=== PATIENT | male | born 1970 | race Caucasian/White ===

== ENCOUNTER 2016-08-25 17:52 | Inpatient (IN) | payer OTHER ==
[~2016-08-25] VITALS: Ht 172.7 cm; Wt 92.6 kg
[2016-08-25 17:54] VITALS: BP 165/97; PULSE 85; RESP 15; TEMP 97.8; O2SAT 98
--- NOTE | 2016-08-25 18:07 | PD ---
HPI Chief Complaint: Neuro Symptoms/ Deficits Time Seen by Provider: 18:07 Travel History International Travel<30 days: No Contact w/Intl Traveler<30days: No Traveled to known affect area: No History of Present Illness HPI 46-year-old male came to the emergency room with history of coronary syndrome that was diagnosed outpatient by the contact center team lead. Patient says that 3 weeks ago he started developing some left-sided headache. He went to the urgent care and was given antibiotic amoxicillin for 10 days for possible sinusitis. He took the medication and the symptoms persisted. Yesterday he noticed that his left eyelid was drooping and this morning he noticed that his pupils were irregular with the left one being smaller. He went to see his primary care who sent him to get a CAT scan of his head and to see an contact center team lead. The CAT scan of the head showed a possible pituitary tumor and the contact center team lead diagnosed him with one or syndrome and asked them to come to the emergency room as soon as possible. Patient does not have any vision changes. He continues to complain of soreness on the left side of his scalp. He seems to be anxious. He has history of colon cancer with colon resection 15 years ago. He is in full remission as far as he knows. Vital signs were stable. [facility] Past Medical History Narrative Medical List of his past medical, social and family history was reviewed from the nursing note. Social History Tobacco Use: No Allergies-Medications (Allergen,Severity, Reaction): Coded Allergies: No Known Allergies (Unverified , 08/25/16) Comments No known drug allergies. Reported Meds & Prescriptions Reported Meds & Active Scripts Active Reported Co Q-10 (Coenzyme Q10 (Ubidecarenone)) 200 Mg Cap 200 Mg PO DAILY Aspirin 81 Mg Tabdr 81 Mg PO DAILY Zorvolex (Diclofenac) 35 Mg Cap 75 Mg PO DAILY Fish Oil ([place]-3 Fatty Acids) 1,200 Mg Cap 1,200 Mg PO DAILY Lisinopril 10 Mg Tab 10 Mg PO DAILY Crestor (Rosuvastatin Calcium) 20 Mg Tab 20 Mg PO DAILY Narrative Medication List of his home medications reviewed from the nursing note. Review of Systems Except as stated in HPI: all other systems reviewed are Neg Physical Exam Narrative GENERAL: Awake, alert, anxious, no obvious distress SKIN: Warm and dry. HEAD: Atraumatic. Normocephalic. EYES: Right pupil is 5 mm round and reactive to light. Left pupil is 2 mm round and reactive to light. Left ptosis. Conjugate eye movement present. Peripheral vision intact in all 4 quadrants. ENT: No nasal bleeding or discharge. Mucous membranes pink and moist. NECK: Trachea midline. No JVD. CARDIOVASCULAR: Regular rate and rhythm. No murmur appreciated. RESPIRATORY: No accessory muscle use. Clear to auscultation. Breath sounds equal bilaterally. GASTROINTESTINAL: Abdomen soft, non-tender, nondistended. Hepatic and splenic margins not palpable. MUSCULOSKELETAL: No obvious deformities. No clubbing. No cyanosis. No edema. NEUROLOGICAL: Awake and alert. No obvious cranial nerve deficits. Motor grossly within normal limits. Normal speech. PSYCHIATRIC: Appropriate mood and affect; insight and judgment normal. Data Data Last Documented VS Orders Mri Brain W&W/O Contrast (08/25/16 ) Complete Blood Count With Diff (08/25/16 18:13) Basic Metabolic Panel (Bmp) (08/25/16 18:13) Prothrombin Time / Inr (Pt) (08/25/16 18:13) Roof Designer / Telemetry ROBERT.Q8H (08/25/16 18:13) Mri Soft Tissue Neck W&W/O Con (08/25/16 ) Alprazolam (Xanax) (08/25/16 19:00) Chest, Pa & Lat (08/25/16 ) Cta Neck W Iv Contrast W 3d (08/25/16 ) Cta Brain W Iv Contrast W 3d (08/25/16 ) Gadodiamide Pf Inj (Omniscan Pf Inj) (08/25/16 20:10) Iohexol 350 Inj (Omnipaque 350 Inj) (08/25/16 20:57) Admit Order (Ed Use Only) (08/25/16 21:22) Follicle Stimulating Hormone (08/25/16 18:30) Free Thyroxine (T4) (08/25/16 18:30) Luteinizing Hormone (Lh) (08/25/16 18:30) Thyroid Stimulating Hormone (08/25/16 18:30) Labs Laboratory Tests Test 08/25/16 18:30 Anion Gap 9 MEQ/L Estimat Glomerular Filtration 69 ML/MIN Rate Free Thyroxine 0.73 NG/DL Thyroid Stimulating Hormone 2.010 uIU/ML 3rd Gen Follicle Stimulating Hormone 10.0 mIU/mL Luteinizing Hormone 1.8 mIU/mL MDM Medical Decision Making Medical Screen Exam Complete: Yes Emergency Medical Condition: Yes Medical Record Reviewed: Yes Differential Diagnosis Pituitary mass, Smiley's syndrome Narrative Course 7:01 PM I have ordered an MRI of his brain with and without contrast and MRI of the soft tissue of the neck. There is an x-ray of the chest been ordered as well. Awaiting for the imaging studies to be done and resulted. For the blood test result. Patient was given Xanax for his anxiety. Case has been signed over to the oncoming ER physician. Procedures EKG Prior to Arrival: No Scripts Lorazepam (Ativan)0.5 Mg Tab0.5 Mg PO Q6H PRN (ANXIETY AND/OR AGITATION) #20 TAB Ref 0 Prov:Giovanni Laboy MD R1 08/28/16 Prednisone 10 Mg Tab10 Mg PO DAILY #26 TAB Ref 0 Take 60mg for the first two days (6 tablets per day), Take 40mg for the next two days (4 tablets per day), Take 20mg for the next two days (2 tablets per day), Take 10mg for the last two days (1 taletper day) Total of 8 days of Prednisone taper Prov:Giovanni Laboy MD R1 08/28/16 Antonio Carranza MD Aug 25, 2016 18:07
[2016-08-25] MEDS ORDERED: ROSU20 PO (18:22)
[2016-08-25] MEDS ORDERED: DICL1CAP4 PO (18:22)
[2016-08-25] MEDS ORDERED: FISH120014 PO (18:22)
[2016-08-25] MEDS ORDERED: LISI10TA3 PO (18:22)
[2016-08-25] MEDS ORDERED: CO Q200C PO (18:22)
[2016-08-25] MEDS ORDERED: ASPI1TAB69 PO (18:22)
[2016-08-25 18:35] VITALS: BP 145/82; PULSE 77; RESP 17; O2SAT 98
[2016-08-25] MEDS ORDERED: ALPRAZolam 0.5 MG TAB PO ONE (19:00)
[2016-08-25 19:11] LABS: AUTOMATED NEUTROPHIL # 6.6 TH/MM3 (1.8-7.7); BASOPHIL % 0.4 % (0.0-2.0); EOSINOPHIL % 0.2 % (0.0-4.0); HEMATOCRIT 43.7 % (39.0-51.0); HEMO FLAGS DIFF FINAL; LYMPH % 19.5 % (9.0-44.0); LYMPHOCYTE # 1.8 TH/MM3 (1.0-4.8); MEAN CELL VOLUME 80.6 FL (80.0-100.0); MEAN CORPUSCULAR HEMOGLOBIN 27.9 PG (27.0-34.0); MEAN CORPUSCULAR HGB CONC 34.7 % (32.0-36.0); MONO % 6.2 % (0.0-8.0); NEUT % 73.7 % (16.0-70.0); PLATELET COUNT 231 TH/MM3 (150-450); RED BLOOD COUNT 5.42 MIL/MM3 (4.50-5.90); RED CELL DISTRIBUTION WIDTH 13.6 % (11.6-17.2)
[2016-08-25 19:16] LABS: PROTHROMBIN TIME - PATIENT 11.5 SEC (9.8-11.6)
[2016-08-25 19:23] LABS: BICARBONATE 28.3 MEQ/L (21.0-32.0); POTASSIUM 3.8 MEQ/L (3.5-5.1)
--- NOTE | 2016-08-25 19:26 | RADRPT ---
EXAM DATE/TIME: 08/25/2016 19:18 [facility] COMPARISON: No previous studies available for comparison. INDICATIONS : Cough. MEDICAL HISTORY : horners syndrome. SURGICAL HISTORY : None. ENCOUNTER: Initial ACUITY: 1 day PAIN SCORE: 0/10 LOCATION: Bilateral chest FINDINGS: PA and lateral views of the chest demonstrate the lungs to be symmetrically aerated without evidence of mass, infiltrate or effusion. The cardiomediastinal contours are unremarkable. Osseous structure s are intact. CONCLUSION: Normal examination. Jaron No MD on August 25, 2016 at 19:24 Board Certified Radiologist. This report was verified electronically.
[2016-08-25] MEDS ORDERED: GADODIAMIDE PF 287 MG/ML 20 ML VIAL (for RAD MRI) IV ONE (20:10)
[2016-08-25] MEDS ORDERED: IOHEXOL 350 MG/ML 10 ML VIAL (for RAD DIAG) IV ONE (20:57)
--- NOTE | 2016-08-25 21:02 | RADRPT ---
EXAM DATE/TIME: 08/25/2016 20:29 [facility] COMPARISON: No previous studies available for comparison. INDICATIONS : Possible carotid dissection. Unequal pupils and neck mass. IV CONTRAST: 75 cc Omnipaque 350 (iohexol) IV ; Cumulative dose for multiple exams. RADIATION DOSE: 14.62 CTDIvol (mGy) ; Combined studies MEDICAL HISTORY : Carcinoma, colon. Hypertension. SURGICAL HISTORY : None. ENCOUNTER: Subsequent ACUITY: 1 day PAIN SCALE: 5/10 LOCATION: Bilateral neck TECHNIQUE: Volumetric scanning was performed using a multirow detector CT scanner. The data was post processed with a variety of visualization algorithms including full-volume maximum intensity projection, multip lanar sliding thin-slab reformation, curved-planar reformation, and surface-rendering techniques. Us ing automated exposure control and adjustment of the mA and/or kV according to patient size, radiatio n dose was kept as low as reasonably achievable to obtain optimal diagnostic quality images. FINDINGS: AORTIC ARCH: There is a three-vessel origin of the great vessels from the aorta. No evidence of ostial narrowing. RIGHT CAROTID: The common carotid artery is intact. The carotid bulb has a normal configuration without ulceration o r narrowing. The internal carotid artery lumen is smooth without stenosis. The external carotid jony ry is intact. LEFT CAROTID: The common carotid artery is intact. The carotid bulb has a normal configuration without ulceration or narrowing. The internal carotid artery lumen is smooth without stenosis. The external carotid ar sylvia is intact. VERTEBRALS: The vertebral arteries have a symmetric diameter. No stenotic lesions are seen. CONCLUSION: Normal examination. Jaron No MD on August 25, 2016 at 20:57 Board Certified Radiologist. This report was verified electronically.
--- NOTE | 2016-08-25 21:07 | RADRPT ---
EXAM DATE/TIME: 08/25/2016 19:28 This report includes an Addendum and supersedes previous reports for this exam. [facility] COMPARISON: No previous studies available for comparison. INDICATIONS : Pituitary adenoma. CONTRAST: 18 cc Omniscan (gadodiamide) IV MEDICAL HISTORY : Carcinoma, colon. Hypertension. Hypercholesterolemia. SURGICAL HISTORY : Colon resection. Cholecystectomy. Left knee. ENCOUNTER: Initial ACUITY: 1 day PAIN SCORE: 0/10 LOCATION: Head. TECHNIQUE: Multiplanar, multisequence MRI of the brain was performed both prior to and following the administration of paramagnetic contrast. FINDINGS: CEREBRUM: The ventricles are normal for age. No evidence of midline shift, mass lesion, hemorrha ge or acute infarction. No extraaxial fluid collections are seen. The pituitary gland reveals a homo geneous minimally peripheral enhancing cyst extending into the inferior suprasellar cistern. This ciara sures up to 1.6 cm in size. There is no obstructive hydrocephalus WHITE MATTER: No significant signal abnormalities are seen in the white matter. POSTERIOR FOSSA: The cerebellum and brainstem are intact. The 4th ventricle is midline. The cere bellopontine angle is unremarkable. The cerebellar tonsils are normal in position. DIFFUSION IMAGING: No focal areas of restricted diffusion are seen. No evidence of acute infarct ion. EXTRACRANIAL: The visualized portions of the orbits and paranasal sinuses are unremarkable. POST-CONTRAST: No abnormal areas of parenchymal or dural enhancement. No evidence of blood-brain barrier breakdown. CONCLUSION: 1.6 cm cyst, cystic structure in the sella turcica extending into the inferior supras ellar cistern. Cystic malignancy such as cystic craniopharyngioma cannot be excluded. Jaron No MD on August 25, 2016 at 21:02 Board Certified Radiologist. This report was verified electronically. ADDENDUM: Differential of this pituitary lesion would also include Rathke's cleft cyst, cystic c hromophobe adenoma, or arachnoid cyst. Jaron No MD on August 25, 2016 at 21:35 Board Certified Radiologist. This report was verified electronically.
--- NOTE | 2016-08-25 21:09 | RADRPT ---
EXAM DATE/TIME: 08/25/2016 20:29 [facility] COMPARISON: No previous studies available for comparison. EXTERNAL COMPARISON : [facility], CT BRAIN August 25, 2016 INDICATIONS : Unequal pupils, headache and blurred vision. IV CONTRAST: 75 cc Omnipaque 350 (iohexol) IV ; Cumulative dose for multiple exams. RADIATION DOSE: 14.62 CTDIvol (mGy) MEDICAL HISTORY : Carcinoma, colon. Hypertension. SURGICAL HISTORY : None. ENCOUNTER: Initial ACUITY: 1 day PAIN SCALE: 6/10 LOCATION: cranial Complete Appropriate Items [id number]: ID X 2: Complete NameDate of BirthPatient Name Band Estimated radiation dose: Verified protocol and related expected exam dose. Education: Nurse/Technologist explained procedure to patient/family. Patient/family demonstrates understanding of procedure. Comments: Images Restored: None for Restore Technologist(s) : Seth Joyce RT(R)(CT) James Zambrano (Greg) RT(R)(CT) ZOEY TAMARA M. MR#[id number] :74 Exam da te/desc:August 25, 2016CT[facility] BRAIN W 3D RECON TECHNIQUE: Volumetric scanning was performed using a multi-row detector CT scanner. The data was post processed with a variety of visualization algorithms including full volume maximum intensity projection, multi -planar sliding thin slab reformation, curved planar reformation, and surface rendering techniques. Using automated exposure control and adjustment of the mA and/or kV according to patient size, radiat ion dose was kept as low as reasonably achievable to obtain optimal diagnostic quality images. FINDINGS: There is excellent visualization of the major intracranial arteries out to the second-order branch ve ssels. There is no evidence for aneurysm, vessel truncation or stenosis, and no evidence for vascula r malformation. Suggestion of minimal expansion of the sella CONCLUSION: Normal examination. No evidence of aneurysm Jaron No MD on August 25, 2016 at 21:05 Board Certified Radiologist. This report was verified electronically.
--- NOTE | 2016-08-25 21:18 | RADRPT ---
EXAM DATE/TIME: 08/25/2016 19:28 [facility] COMPARISON: CTA CAROTID ARTERIES W 3D RECON, August 25, 2016, 20:29. INDICATIONS : Neoplasm. Smiley's syndrome. CONTRAST: 18 cc Omniscan (gadodiamide) IV MEDICAL HISTORY : Carcinoma, colon. Hypertension. Hypercholesterolemia. SURGICAL HISTORY : Colon resection. Cholecystectomy. Left knee. ENCOUNTER: Initial ACUITY: 1 day PAIN SCORE: 0/10 LOCATION: Head. TECHNIQUE: Multisequence, multiplanar MRI examination was performed. FINDINGS: NASOPHARYNX: The nasopharyngeal airway has a normal configuration. No mucosal thickening or mass is seen. OROPHARYX: The intrinsic muscles of the tongue are symmetric. The tonsillar pillars are intact. The prevertebr al soft tissues are not thickened. LARYNX: The supraglottic, glottic, and infraglottic structures are intact. PARAPHARYNGEAL: The parapharyngeal space is intact. SALIVARY GLANDS: The parotid and submandibular glands are intact. LYMPH NODES: No enlarged or necrotic appearing nodes. THYROID: Homogeneous enhancement without evidence of nodule. BONES: Homogeneous signal in the marrow of the visualized osseous structures. POST CONTRAST: No abnormal areas of enhancement seen. CONCLUSION: Normal examination. Jaron No MD on August 25, 2016 at 21:14 Board Certified Radiologist. This report was verified electronically.
--- NOTE | 2016-08-25 21:23 | HHI.HP ---
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 Symptoms began three weeks ago (Aug 06) as a "nerve attack" around L eye. Attack lasted ~90 sec, radiated to L- scalp, and was accompanied by L eye twitching, pressure around eye, and tenderness to L scalp and base of skull. Went to urgent care, diagnosed with sinus infection, and treated with Amoxicillin x5 days with no improvement. Facial neuropathy and scalp tenderness have continued, along with intermittent L -sided headaches. 1 week ago, noticed his L eye drooping with constricted L pupil and dilated R pupil. Denies anhydrosis. Experiencing blurry vision in RIGHT eye. Went to PCP today who had stat referral to ophthalmology and ordered outpatient CT scan. Credit Historian diagnosed Smiley's syndrome and referred him to ED for further workup. CT scan was suggestive of pituitary mass. Pt denies loss of visual osborn, double vision, acute impotence, or weight loss/ weight gain. Denies fevers, confusion, night sweats, or change in appetite. ( Khushbu Dubon MD R1) Review of Systems Constitutional: COMPLAINS OF: Fatigue (mildly increased, going to bed earlier) , DENIES: Fever, Weight gain, Weight loss, Chills, Change in appetite Eyes: COMPLAINS OF: Blurred vision (RIGHT eye), DENIES: Eye pain, Photosensitivity, Double Vision Ears, nose, mouth, throat: DENIES: Vertigo, Throat pain, Odynophagia Respiratory: DENIES: Wheezing, Shortness of breath Cardiovascular: DENIES: Chest pain, Palpitations, Syncope Gastrointestinal: DENIES: Abdominal pain, Diarrhea, Nausea Genitourinary: DENIES: Sexual dysfunction, Hematuria Musculoskeletal: COMPLAINS OF: Back pain (lumbar, chronic), DENIES: Joint pain , Neck pain Integumentary: DENIES: Rash Hematologic/lymphatic: DENIES: Bruising Neurologic: COMPLAINS OF: Headache (mild, intermittent, L sided), DENIES: Abnormal gait, Poor Balance Psychiatric: COMPLAINS OF: Anxiety (chronic), DENIES: Depression, Hallucinations (Khushbu Dubon MD R1) Past Family Social History Past Medical History HTN HLD Hx Stage 4 Colon Cancer (07/2011) s/p colon resection and liver resection. Chemo only, not radiation Bowel obstruction (07/2016), treated with medications, no sx, colonoscopy 2015, wnl Chronic sinus congestion Chronic lumbar back pain Anxiety Past Surgical History L knee sx (2011) Colectomy (2011) with removal of GB and part of liver (08/2011) Reported Medications Co Q-10 (Coenzyme Q10 (Ubidecarenone)) 200 Mg Cap 200 Mg PO DAILY Aspirin 81 Mg Tabdr 81 Mg PO DAILY Zorvolex (Diclofenac) 35 Mg Cap 75 Mg PO DAILY Fish Oil ([place]-3 Fatty Acids) 1,200 Mg Cap 1,200 Mg PO DAILY Lisinopril 10 Mg Tab 10 Mg PO DAILY Crestor (Rosuvastatin Calcium) 20 Mg Tab 20 Mg PO DAILY (Khushbu Dubon MD R1) Allergies: Coded Allergies: No Known Allergies (Unverified , 08/25/16) Family History Mother: HLD, HTN Father: HLD, HTN, Colon Cancer s/p resection Social History Tobacco: 12-1 PPD * 10 years (quit 2001) Alcohol: 3 beers/night Recreational drugs: denies (Khushbu Dubon MD R1) Physical Exam Vital Signs Vital Signs Date Time Temp Pulse Resp B/P Pulse Ox O2 Delivery O2 Flow Rate FiO2 08/25/16 18:35 77 17 145/82 98 Room Air 08/25/16 18:12 81 16 100 Room Air 08/25/16 17:54 97.8 85 15 165/97 98 Physical Exam GEN: Adult male in mild distress secondary to anxiety. DERM: No rashes. Skin warm and dry. HEENT: Pupillary light reflex intact bilaterally. Anisorca with R pupil dilated to ~4-5mm, L pupil constricted to 2mm. Faint diffuse injection of L conjunctiva. Visual osborn full and intact. EOMI. L-scalp tenderness. NECK: Full ROM. No LAD. CV: RRR. No murmurs or gallops. RESP: Lungs CTAB. No wheezing or rales. Breath sounds equal b/l. GI: Abd soft, non-tender, non-distended. MSK: Muscle tone symmetrical, wnl. Moves all four limbs against gravity. No calf tenderness NEURO: AAO x3. No facial droop. Motor and sensory grossly within normal limits.Normal speech. PSYCH: Anxious affect. Asks many questions. Insight good. Laboratory Laboratory Tests Test 08/25/16 18:30 White Blood Count 9.0 Red Blood Count 5.42 Hemoglobin 15.1 Hematocrit 43.7 Mean Corpuscular Volume 80.6 Mean Corpuscular Hemoglobin 27.9 Mean Corpuscular Hemoglobin 34.7 Concent Red Cell Distribution Width 13.6 Platelet Count 231 Mean Platelet Volume 8.5 Neutrophils (%) (Auto) 73.7 Lymphocytes (%) (Auto) 19.5 Monocytes (%) (Auto) 6.2 Eosinophils (%) (Auto) 0.2 Basophils (%) (Auto) 0.4 Neutrophils # (Auto) 6.6 Lymphocytes # (Auto) 1.8 Monocytes # (Auto) 0.6 Eosinophils # (Auto) 0.0 Basophils # (Auto) 0.0 CBC Comment DIFF FINAL Differential Comment Prothrombin Time 11.5 Prothromb Time International 1.0 Ratio Sodium Level 138 Potassium Level 3.8 Chloride Level 101 Carbon Dioxide Level 28.3 Anion Gap 9 Blood Urea Nitrogen 9 Creatinine 1.15 Estimat Glomerular Filtration 69 Rate Random Glucose 116 Calcium Level 9.5 (Khushbu Dubon MD R1) Result Diagram: 08/25/16 1830 08/25/160 Imaging Soft Tissue MRI 08/25/16 0000 Signed Impressions: Service Date/Time: August 19:28 - CONCLUSION: Normal examination. Jaron No MD Neck CTA 08/25/16 0000 Signed Impressions: Service Date/Time: August 20:29 - CONCLUSION: Normal examination. Jaron No MD Head CTA 08/25/16 0000 Signed Impressions: Service Date/Time: August 20:29 - CONCLUSION: Normal examination. No evidence of aneurysm Jaron No MD Chest X-Ray 08/25/16 0000 Signed Impressions: Service Date/Time: August 19:18 - CONCLUSION: Normal examination. Jaron No MD Brain MRI 08/25/16 0000 Signed Impressions: Service Date/Time: August 19:28 - CONCLUSION: 1.6 cm cyst , cystic structure in the sella turcica extending into the inferior suprasellar cistern. Cystic malignancy such as cystic craniopharyngioma cannot be excluded. Jaron No MD ADDENDUM: Differential of this pituitary lesion would also include Rathke's cleft cyst, cystic chromophobe adenoma, or arachnoid cyst. Jaron No MD (Khushbu Dubon MD R1) Assessment and Plan Assessment and Plan 46 year-old male with chronic sinus congestion, presenting with ptosis, myiosis , and cranial neuropathy admitted 08/25/16 for workup of pituitary cyst and rule- out Smiley's syndrome. Code Status Full Discussed Condition With SDW: Dr. Daniel (Khushbu Dubon MD R1) Attending Attestation Patient seen and examined. Case reviewed and discussed with the resident team. Agree with plan of care as discussed with me and documented in the resident note. (Yvette Whitehead MD) Problem List: (1) Pituitary cyst Status: Chronic Plan: -MRI brain demonstrated 1.6cm cyst of sella turcica. Increased fatigue, denies impotence, weight gain. -Differential includes cysts (Rathke's cleft cyst vs other) vs pituitary adenoma vs other benign tumor (craniopharyngioma, meningioma, pituicytoma) vs malignant tumor. -If adenoma, prevalence lactotroph > nonfunctioning > somatotroph > corticotroph. 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 Pt denies anhydrosis. Ruled out cervical artery dissection or cavernous sinus lesions with imaging as below. -CXR: no acute process. -Head CTA: normal examination, no aneurysm -Neck CTA: wnl -Soft tissue MRI: wnl -CT chest w/ and w/o contrast pending (3) Facial neuropathy Status: Acute Plan: Facial neuropathy x3 weeks, centered around L eye, radiating to L scalp with intermittent "attacks" and chronic tenderness of scalp/base of skull. Differential: side effect space-occupying pituitary cyst vs sinus headache vs neuropathy cervical neuropathy vs trigeminal neuralgia -Continue to monitor for improvement with work up of pituitary mass -Pain control as above (4) HTN (hypertension) Status: Chronic Plan: -Continue lisinopril 10mg daily -Continue baby aspirin daily (5) HLD (hyperlipidemia) Status: Chronic Plan: -Continue Crestor 20mg daily -Hold CoQ10 -Hold [place] 3 fatty acids (6) Fluids, Electrolytes, Nutrition, Prophylaxis Status: Acute Plan: Fluids: Per PO Electrolytes: monitor and replete, as necessary Nutrition: regular diet DVT prophylaxis: SCDs GI prophylaxis: not indicated Pain management: Ibuprofen 600mg PRN pain 5-10 (Khushbu Dubon MD R1) 2 Midnight Certification Type: Admission for Inpatient Services Order for Inpatient Services The services are ordered in accordance with Medicare regulations or non- Medicare payer requirements, as applicable. In the case of services not specified as inpatient-only, they are appropriately provided as inpatient services in accordance with the 2-midnight benchmark. Estimated LOS (days): 2 days is the estimated time the patient will need to remain in the hospital, assuming treatment plan goals are met and no additional complications. Post-Hospital Plan: Home (Khusbhu Dubon MD R1) Khushbu Dubon MD R1 Aug 25, 2016 21:23 Yvette Whitehead MD Aug 26, 2016 13:19
[2016-08-25] MEDS ORDERED: SODIUM CHLORIDE 0.9% FLUSH 5 ML FLUSH FLUSH PRN (22:15)
[2016-08-25] MEDS ORDERED: ACETAMINOPHEN 325 MG TAB PO PRN (22:15)
[2016-08-25] MEDS ORDERED: ZOLPIDEM TARTRATE 5 MG TAB PO PRN (22:15)
[2016-08-25] MEDS ORDERED: NALOXONE HCL 0.4 MG/ML AMP IV PRN (22:15)
[2016-08-25 22:39] VITALS: BP 142/87
[2016-08-25 23:00] VITALS: BP 153/63; PULSE 71; RESP 18; TEMP 97.2; O2SAT 97
[2016-08-26] VITALS (8 sets, daily range): BP systolic 118–153; BP diastolic 63–92; PULSE 67–85; RESP 16–20; TEMP 97.2–97.8; O2SAT 95–98
[2016-08-26 00:09] LABS: FREE T4 0.73 NG/DL (0.76-1.46); LUTEINIZING HORMONE 1.8 mIU/mL (1.2-10.6)
[2016-08-26] MEDS: LORazepam 2 MG/ML VIAL IV PUSH PRN ×3 (00:14→21:38)
[2016-08-26 08:35] LABS: AUTOMATED NEUTROPHIL # 4.6 TH/MM3 (1.8-7.7); BASOPHIL % 0.6 % (0.0-2.0); EOSINOPHIL # 0.1 TH/MM3 (0-0.4); HEMATOCRIT 40.7 % (39.0-51.0); HEMO FLAGS DIFF FINAL; LYMPH % 23.8 % (9.0-44.0); LYMPHOCYTE # 1.6 TH/MM3 (1.0-4.8); MEAN CELL VOLUME 80.8 FL (80.0-100.0); MEAN CORPUSCULAR HEMOGLOBIN 27.9 PG (27.0-34.0); MEAN CORPUSCULAR HGB CONC 34.6 % (32.0-36.0); MONO % 7.5 % (0.0-8.0); NEUT % 67.1 % (16.0-70.0); PLATELET COUNT 213 TH/MM3 (150-450); RED BLOOD COUNT 5.03 MIL/MM3 (4.50-5.90); RED CELL DISTRIBUTION WIDTH 13.8 % (11.6-17.2); WHITE BLOOD COUNT 6.9 TH/MM3 (4.0-11.0)
[2016-08-26] MEDS ORDERED: ATORVASTATIN 40 MG TAB PO SCH (09:00)
[2016-08-26] MEDS ORDERED: ASPIRIN EC 81 MG TABEC PO SCH (09:00)
[2016-08-26 09:01] LABS: ALKALINE PHOSPHATASE 68 U/L (45-117); ALT (GPT) 34 U/L (12-78); ANION GAP 10 MEQ/L (5-15); AST (GOT) 16 U/L (15-37); BICARBONATE 26.5 MEQ/L (21.0-32.0); BLOOD UREA NITROGEN 11 MG/DL (7-18); CHLORIDE 103 MEQ/L (98-107); GLOMERULAR FILTRATION RATE 80 ML/MIN (>89); POTASSIUM 4.1 MEQ/L (3.5-5.1); SODIUM (NA) 139 MEQ/L (136-145); TOTAL BILIRUBIN ADULT 2.1 MG/DL (0.2-1.0)
[2016-08-26] MEDS ORDERED: ACETAMINOPHEN/HYDROcodone 325 MG/5 MG TAB PO PRN ×2 (09:15→10:00)
[2016-08-26] MEDS ORDERED: NALOXONE HCL 0.4 MG/ML AMP IV PRN (09:30)
[2016-08-26] MEDS: LISINOPRIL 10 MG TAB PO SCH (09:31)
[2016-08-26] MEDS: SODIUM CHLORIDE 0.9% FLUSH 5 ML FLUSH FLUSH SCH ×2 (09:32→21:00)
[2016-08-26] MEDS: ACETAMINOPHEN 325 MG TAB PO PRN (09:40)
[2016-08-26] MEDS ORDERED: ACETAMINOPHEN/HYDROcodone 325 MG/10 MG TAB PO PRN (10:00)
[2016-08-26 12:26] LABS: HEMATOCRIT 42.7 % (39.0-51.0); MEAN CELL VOLUME 80.5 FL (80.0-100.0); MEAN CORPUSCULAR HGB CONC 34.8 % (32.0-36.0); PLATELET COUNT 237 TH/MM3 (150-450); RED CELL DISTRIBUTION WIDTH 13.7 % (11.6-17.2); REVIEW FLAG FINAL; WHITE BLOOD COUNT 7.7 TH/MM3 (4.0-11.0)
[2016-08-26 12:35] LABS: INTERNATIONAL NORMALIZED RATIO 1.1 RATIO; PROTHROMBIN TIME - PATIENT 11.9 SEC (9.8-11.6)
[2016-08-26] MEDS: DEXAMETHASONE 4 MG TAB PO SCH ×3 (12:40→22:54)
--- NOTE | 2016-08-26 13:06 | MB ---
cc: BREEZY SMITH M.D. DATE OF CONSULTATION: 08/26/2016 DATE OF : 1970 REASON FOR CONSULTATION 1. Ptosis, left eye. 2. Headache. 3. Abnormal MRI. 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 He stated that there was nothing wrong with his eye. Sometime in the beginning of the month he started having some nerve pain around his left side lasting for seconds going to the scalp, still having some scalp pain. Had some pressure and pain around the eye and the left scalp and skull base. Urgent Care put him on amoxicillin, however, he started having drooping of his left eye with abnormal pupillary reaction a week ago. He went to his primary care who referred him to ophthalmology and got an outpatient CT. The microfilming document preparer saw the Smiley's and sent him here for evaluation. A CT was suggestive of a pituitary mass. PAST MEDICAL HISTORY 1. Hypertension. 2. Hyperlipidemia. 3. Stage IV colon cancer diagnosed in 2011, status post colon resection and liver resection, chemo only, no radiation. 4. Bowel obstruction in July of this year treated with medication. 5. Colonoscopy February 2016 was normal. 6. Chronic sinus congestion. 7. Chronic low back pain. 8. Anxiety. 9. Left knee surgery. 10.Colectomy. MEDICATIONS Home medicines are: 1. CoQ10. 2. Baby aspirin, last dose was yesterday. 3. Baclofen, he also took yesterday, 75 mg. 4. Fish oil. 5. Lisinopril. 6. Crestor. ALLERGIES None reported. FAMILY HISTORY Hypertension and hyperlipidemia in mother, hypertension and hyperlipidemia and colon cancer in father. SOCIAL HISTORY Smokes 1/2 to 1 pack a day for 10 years, quit in 2001. Three beers nightly. No recreational drugs. PHYSICAL EXAMINATION VITAL SIGNS: Temperature 97.2, pulse 71, respiratory rate 18, blood pressure 153/63, satting 97% on room air. NECK: Supple. No bruits. HEART: Regular. NEUROLOGIC: He is awake, alert, oriented and fluent. His pupils are reactive, however he does have miosis of the left pupil. The right pupil reacts normally. Extraocular muscles are intact. He does have left ptosis. Tenderness over the left scalp. Tongue is midline. Normal speech. Motor: He does not exhibit any weakness. No drift or leg lag. Cerebellar testing normal. Toes withdraws. DTRs are 1+. Gait is normal. He has been ambulating in the room. I do not appreciate any anisocoria. LABORATORY CBC is unremarkable. Chemistries: GFR 80. Free T4 0.73, TSH 2.010, FSH 10, LH 1.8. Prolactin, testosterone, growth hormone, HCG, and ACTH are still pending. His cortisol is 14.8. Coag panel is normal. IMAGING He had a neck CTA and head CTA that was normal. Soft tissue MRI was negative. Chest x-ray was normal. His brain MRI did show a 1.6 cm cyst in the sella turcica extending into the anterior suprasellar cistern. Differential would be a craniopharyngioma, pituitary lesion such as a Rathke's cleft cyst, cystic chromophobe adenoma or arachnoid cyst. IMPRESSION A 46-year-old man with new onset left ptosis with abnormal brain MRI as stated, etiology at this point to be determined. He has a cyst in the sella turcica. PLAN/RECOMMENDATIONS I do agree with getting a CTA of the chest with and without contrast. Will send out for a spinal tap. His last dose of aspirin was yesterday as well as acid. They cannot do it today, will have to do it tomorrow. I will send out for the usual studies but also for cytology to rule out malignancy. At this point in time continue current care as outlined. Also he has the headache and is on some dexamethasone, I agree that, but some Marian[place] will also help. Tylenol is really not helping him at all. Further recommendations to be made accordingly. MD MARIUSZ Katz/FABRICE /11:57 AM /12:46 PM
--- NOTE | 2016-08-26 13:28 | HHI.FPPN ---
Subjective Remarks Patient seen, examined and discussed with the medicine team. Patient's parents and are present in the room. This is a 46-year-old male who was seen in an urgent care clinic because of some difficulties with eyelid drooping left headache, fatigue, left scalp and neck pain. Subsequently, patient noticed that his left eyelid was drooping and that his left pupil was small and the right was dilated. He saw his primary care doctor who sent him to ophthalmology. Ophthalmological exam led to referral to the emergency department after discerning that patient had outpatient scanning which showed a 1.6 cm pituitary cyst in the sella turcica. Past history positive for hypertension, dyslipidemia and stage IV colon cancer with subsequent colectomy. Also issues with anxiety and sinus infections. Past surgical history for colectomy and other intra-abdominal surgeries in association with this procedure. Medications SERGIO inhibitor, Crestor, oQ10, fish oil, baby aspirin and Voltaren Review of systems positive for the left neck scalp pain, left headache, fatigue , left eyelid droop, some injection of the eyes and dilated right pupil with pinpoint left pupil. Other review of systems asked and negative. Please see history and physical examination for this admission for additional historical details. Objective Vitals Vital Signs Date Time Temp Pulse Resp B/P Pulse Ox O2 Delivery O2 Flow Rate FiO2 08/26/16 04:00 97.2 71 18 153/63 97 08/25/16 23:00 97.2 71 18 153/63 97 08/25/16 22:39 72 16 142/87 98 08/25/16 18:35 77 17 145/82 98 Room Air 08/25/16 18:12 81 16 100 Room Air 08/25/16 17:54 97.8 85 15 165/97 98 I/O 08/25/16 08/25/16 08/25/16 08/26/16 08/26/16 08/26/16 07:00 15:00 23:00 07:00 15:00 23:00 Intake Total 480 ml Balance 480 ml Intake Oral 480 ml # Voids 1 1 # Bowel Movements 0 Result Diagram: 08/26/16 1210 08/26/16 0816 Other Results Laboratory Tests Test 08/25/16 08/26/16 08/26/16 18:30 08:16 12:10 White Blood Count 9.0 TH/MM3 6.9 TH/MM3 7.7 TH/MM3 Red Blood Count 5.42 MIL/MM3 5.03 MIL/MM3 5.30 MIL/MM3 Hemoglobin 15.1 GM/DL 14.1 GM/DL 14.9 GM/DL Hematocrit 43.7 % 40.7 % 42.7 % Mean Corpuscular Volume 80.6 FL 80.8 FL 80.5 FL Mean Corpuscular Hemoglobin 27.9 PG 27.9 PG 28.0 PG Mean Corpuscular Hemoglobin 34.7 % 34.6 % 34.8 % Concent Red Cell Distribution Width 13.6 % 13.8 % 13.7 % Platelet Count 231 TH/MM3 213 TH/MM3 237 TH/MM3 Mean Platelet Volume 8.5 FL 8.2 FL 8.3 FL Neutrophils (%) (Auto) 73.7 % 67.1 % Lymphocytes (%) (Auto) 19.5 % 23.8 % Monocytes (%) (Auto) 6.2 % 7.5 % Eosinophils (%) (Auto) 0.2 % 1.0 % Basophils (%) (Auto) 0.4 % 0.6 % Neutrophils # (Auto) 6.6 TH/MM3 4.6 TH/MM3 Lymphocytes # (Auto) 1.8 TH/MM3 1.6 TH/MM3 Monocytes # (Auto) 0.6 TH/MM3 0.5 TH/MM3 Eosinophils # (Auto) 0.0 TH/MM3 0.1 TH/MM3 Basophils # (Auto) 0.0 TH/MM3 0.0 TH/MM3 CBC Comment DIFF FINAL DIFF FINAL Differential Comment Prothrombin Time 11.5 SEC 11.9 SEC Prothromb Time International 1.0 RATIO 1.1 RATIO Ratio Sodium Level 138 MEQ/L 139 MEQ/L Potassium Level 3.8 MEQ/L 4.1 MEQ/L Chloride Level 101 MEQ/L 103 MEQ/L Carbon Dioxide Level 28.3 MEQ/L 26.5 MEQ/L Blood Urea Nitrogen 9 MG/DL 11 MG/DL Creatinine 1.15 MG/DL 1.01 MG/DL Random Glucose 116 MG/DL 105 MG/DL Calcium Level 9.5 MG/DL 9.1 MG/DL Anion Gap 9 MEQ/L 10 MEQ/L Estimat Glomerular Filtration 69 ML/MIN 80 ML/MIN Rate Free Thyroxine 0.73 NG/DL Thyroid Stimulating Hormone 2.010 uIU/ML 3rd Gen Follicle Stimulating Hormone 10.0 mIU/mL Luteinizing Hormone 1.8 mIU/mL Total Bilirubin 2.1 MG/DL Aspartate Amino Transf 16 U/L (AST/SGOT) Alanine Aminotransferase 34 U/L (ALT/SGPT) Alkaline Phosphatase 68 U/L Total Protein 7.4 GM/DL Albumin 4.1 GM/DL Random Cortisol 14.8 MCG/DL Activated Partial 26.0 SEC Thromboplast Time Imaging Last Impressions Soft Tissue MRI 08/25/16 Signed Impressions: Service Date/Time: August 19:28 - CONCLUSION: Normal examination. Jaron No MD Neck CTA 08/25/16 Signed Impressions: Service Date/Time: August 20:29 - CONCLUSION: Normal examination. Jaron No MD Head CTA 08/25/16 Signed Impressions: Service Date/Time: August 20:29 - CONCLUSION: Normal examination. No evidence of aneurysm Jaron No MD Chest X-Ray 08/25/16 Signed Impressions: Service Date/Time: August 19:18 - CONCLUSION: Normal examination. Jaron No MD Brain MRI 08/25/16 Signed Impressions: Service Date/Time: August 19:28 - CONCLUSION: 1.6 cm cyst , cystic structure in the sella turcica extending into the inferior suprasellar cistern. Cystic malignancy such as cystic craniopharyngioma cannot be excluded. Jaron No MD ADDENDUM: Differential of this pituitary lesion would also include Rathke's cleft cyst, cystic chromophobe adenoma, or arachnoid cyst. Jaron No MD Objective Remarks O. CONSTITUTIONAL/GEN: normally nourished, in NAD. EYES: conjunctiva normal, sclerae injected bilaterally, left pupil miotic, right pupil enlarged, visual osborn intact ENT: Mouth and pharynx normal. Mucous membranes moist NECK: Supple, no lymphadenopathy or bruit LUNGS: clear A-P, respiratory effort is normal. CARDIOVASCULAR: RR without murmur or gallop. No significant edema. GI/ABD: soft without masses, without organomegaly. Active bowel sounds scar from previous colectomy : no CVA tenderness NEURO: No focal deficits. SKIN: color normal, no rashes noted. HEME/LYMPH: no bruising, petechia or significant adenopathy MUSC: back is normal in appearance. Extremities are normal in appearance. PSYCH/MENTAL STATUS: Alert and oriented x 3. A/P Assessment and Plan 46 year-old male with chronic sinus congestion, presenting with ptosis, myiosis , and cranial neuropathy admitted 08/25/16 for workup of pituitary cyst and rule- out Smiley's syndrome. Attending Attestation Patient seen and examined. Case reviewed and discussed with the resident team. Agree with plan of care as discussed with me and documented in the resident note. Problem List: (1) Pituitary cyst Status: Chronic Plan: -MRI brain demonstrated 1.6cm cyst of sella turcica. Increased fatigue, denies impotence, weight gain. -Differential includes cysts (Rathke's cleft cyst vs other) vs pituitary adenoma vs other benign tumor (craniopharyngioma, meningioma, pituicytoma) vs malignant tumor. -If adenoma, prevalence lactotroph > nonfunctioning > somatotroph > corticotroph. 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 Pt denies anhydrosis. Ruled out cervical artery dissection or cavernous sinus lesions with imaging as below. -CXR: no acute process. -Head CTA: normal examination, no aneurysm -Neck CTA: wnl -Soft tissue MRI: wnl -CT chest w/ and w/o contrast pending (3) Facial neuropathy Status: Acute Plan: Facial neuropathy x3 weeks, centered around L eye, radiating to L scalp with intermittent "attacks" and chronic tenderness of scalp/base of skull. Differential: side effect space-occupying pituitary cyst vs sinus headache vs neuropathy cervical neuropathy vs trigeminal neuralgia -Continue to monitor for improvement with work up of pituitary mass -Pain control as above (4) HTN (hypertension) Status: Chronic Plan: -Continue lisinopril 10mg daily -Continue baby aspirin daily (5) HLD (hyperlipidemia) Status: Chronic Plan: -Continue Crestor 20mg daily -Hold CoQ10 -Hold Deland 3 fatty acids (6) Fluids, Electrolytes, Nutrition, Prophylaxis Status: Acute Plan: Fluids: Per PO Electrolytes: monitor and replete, as necessary Nutrition: regular diet DVT prophylaxis: SCDs GI prophylaxis: not indicated Pain management: Ibuprofen 600mg PRN pain 5-10 Yvette Whitehead MD Aug 26, 2016 13:28
[2016-08-26] MEDS ORDERED: LORazepam 2 MG/ML VIAL ONE (13:35)
--- NOTE | 2016-08-26 14:15 | RADRPT ---
EXAM DATE/TIME: 08/26/2016 13:57 [facility] COMPARISON: No previous studies available for comparison. INDICATIONS : Patient with a history of left horners syndrome. MEDICAL HISTORY : HTN HLD Colon Cancer Chronic sinus congestion Anxiety SURGICAL HISTORY : Left knee surgery Colectomy Cholecystectomy Liver resection ENCOUNTER: Initial ACUITY: 3 weeks PAIN SCORE: 0/10 LUMBAR PUNCTURE TIME: 1355 hours FLUORO TIME: 0.71 minutes ACCESS LEVEL: L3-4 OPENING PRESSURE: 16 cm of water Not requested. FLUID: 14 cc of clear CSF was collected and sent to the laboratory for analysis. SEDATION: 1.) 2 mg lorazepam (Ativan) IV PROCEDURE : 1. Fluoroscopic guided lumbar puncture. 2. Recording of opening pressure. The risks, benefits and alternatives to the procedure were explained and verbal and written consent w as obtained. The site was prepped in sterile fashion. Full sterile technique was used, including ca p, mask, sterile gloves and gown and a large sterile sheet. Hand hygiene and 2% chlorhexidine and/or betadine/alcohol prep was utilized per protocol for cutaneous antisepsis. The skin and subcutaneous tissues were infiltrated with local anesthetic solution. With fluoroscopic guidance the lumbar thecal sac was punctured at the above level described above and the opening pressure was recorded. The above described fluid was removed without difficulty. The patient tolerated the procedure well and there were no complications. CONCLUSION: Uncomplicated lumbar puncture. Morris Hernandez MD on August 26, 2016 at 14:13 Board Certified Radiologist. This report was verified electronically.
--- NOTE | 2016-08-26 14:24 | PD.RAD ---
Post Procedure Progress Note Pre Procedure Diagnosis: (1) Smiley's syndrome Post Procedure Diagnosis: (1) Smiley's syndrome Procedure Date: Aug 26, 2016 Supervising Radiologist: Morris Hernandez Proceduralist/Assist: Montserrat Wyatt, RT(R), Shakira Maradiaga RT(R) Anesthesia: Local Plan of Activity Patient to Unit: [facility] Patient Condition: Good See PACS Report for procedural detail/treatment Spinal Procedure Lumbar Puncture L3-L4 Fluid Removal (CCs): 14 Fluid Description: Clear Puncture Time: 14:00 Findings: opening pressure 16cm H2O Morris Hernandez MD Aug 26, 2016 14:24
[2016-08-26 14:48] LABS: GROSS BLOOD TUBE #1 0 (0); GROSS BLOOD TUBE #2 0 (0); GROSS BLOOD TUBE #3 0 (0); GROSS BLOOD TUBE #4 0 (0); SUPERNATE COLOR TUBE #1 CLEAR (CLEAR); SUPERNATE COLOR TUBE #2 CLEAR (CLEAR); SUPERNATE COLOR TUBE #3 CLEAR (CLEAR); SUPERNATE COLOR TUBE #4 CLEAR (CLEAR); VOLUME TUBE # 2 3.2 ML; VOLUME TUBE # 4 4.2 ML
[2016-08-26 15:43] LABS: CSF LYMPHOCYTES 90 %; CSF NEUTROPHILS 0 %; WBC TUBE #4 2 /MM3 (0-10)
--- NOTE | 2016-08-26 17:06 | MB ---
cc: KATYA BARRETO PRISCILLA MD DATE OF CONSULTATION 08/26/16 REASON FOR CONSULTATION Sellar cystic mass HISTORY OF PRESENT ILLNESS This is a 46-year-old gentleman who presents with a three-week history of left-sided periorbital, cheek, forehead and scalp pain, tenderness and dysesthesias. He also relates neck pain associated with this. He initially thought that he had sinusitis and congestion and went to urgent care facility and was placed on antibiotics which did not help and the over the past week or so has also started developing droopiness in the left eye. He was seen recently by his primary care physician and referred to ophthalmology who felt that the patient had Smiley's syndrome and was referred to the emergency room. He denies any right facial or scalp area symptoms and denies any double vision. Denies any vertigo. No incontinence. He does relate a history of stage IV colon cancer with metastasis to the liver and has had a resection as well as subsequent chemotherapy in 2000. He also relates that he has had a more recent scan, although it is not clear whether he has ever had a CT scan of the head or MRI scan, but was informed that there is no indication for any recurrence of this colon cancer. Workup since his presentation last evening included a head CT angiogram and a neck CT angiogram which does not reveal any vascular abnormality. Soft tissue MRI scan of the neck is also negative. 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 There is encroachment upon the optic chiasm but no compression noted. He has also undergone extensive hormonal workup per pituitary protocol. PAST MEDICAL HISTORY 1. Stage IV colon cancer status post colon resection and liver resection with chemotherapy about 15 years ago. 2. Chronic low back pain, hypertension, hyperlipidemia. 3. He also relates that he was admitted for partial bowel obstruction which resolved without any intervention a few months ago MEDICATIONS 1. Aspirin 81 mg daily. 2. Diclofenac 75 mg daily. 3. Lisinopril 10 mg daily 4. Crestor 20 mg daily 5. CoQ 10 200 mg daily, 6. Fish oral 1200 mg daily. ALLERGIES NO KNOWN DRUG ALLERGIES. SOCIAL HISTORY He quit smoking 10 years ago and he admits to drinking about three beers each evening. His parents are here with him. He is . REVIEW OF SYSTEMS Pertinent positives as mentioned in the history of present illness. No history of chest pain or shortness of breath. No double vision or blurred vision. No visual loss noted. No incontinence. No abdominal pain. He relates slight unsteadiness ever since his chemotherapy. He also relates chronic low back pain which is tolerable. No fevers or chills or recent weight gain or weight loss. Denies history of easy bleeding or bruising. LABORATORY FINDINGS Sodium 139, potassium 4.1, BUN 11, creatinine 1.01, glucose 105, Free T4 is 0.73. TSH is 2.01 and FSH is 10, LH is 1.8, prolactin, ACTH and human growth hormone levels are pending. Random cortisol level is 14.80, PT 11.9, INR 1.1, PTT 26. White blood cell count 7.7, hemoglobin 14.9, platelet count of 237. PHYSICAL EXAMINATION VITAL SIGNS: Temperature 97.2, pulse is 71, respiratory rate 18, blood pressure 153/63, oxygen saturation 97% on room air. HEAD: No Benavides's or raccoon sign. NECK: Supple. No nuchal rigidity noted. CHEST: Clear bilaterally HEART: Regular rate and rhythm, normal S1, S2. ABDOMEN: Soft, nontender. EXTREMITIES: No cyanosis or edema. NEUROLOGIC: He is awake, alert and oriented x3. His pupils are reactive bilaterally, although right side is 4 reacts down to 2 and left side is a 2 and slightly reactive. Extraocular muscles are intact. Face is symmetric. tongue is midline and he possibly may have loss of slight nasal labial depression on the left side. He does relate some decreased sensation of left V1 and V2 distribution to light touch. Motor strength 5/5 in the upper and lower extremities. Negative Babinski. Light touch sensation intact and upper and lower extremities. Speech is fluent. IMPRESSION 1. A 46 year-old gentleman with sellar/suprasellar cystic mass, although does not appear to be compressing on the optic chiasm but encroaching on it. There is also involvement of the right cavernous sinus. There is no underlying vascular abnormality noted on the CT angiogram of the neck and head. His symptoms are more consistent with left fifth nerve involvement in the V1, V2 distribution as well as possibly seventh nerve also and findings consistent with ptosis. I do not appreciate any oculomotor nerve involvement at this point. 2. He does have a history of stage IV colon cancer with liver metastases, although this is a remote history. PLAN I am not convinced that his current findings are completely related to this sellar/suprasellar cystic mass and, therefore, further workup is indicated including a CSF analysis with a lumbar puncture to rule out any carcinomatosis meningitis involving the cranial nerves. He will also be started on steroids to see if it helps with his nerve irritation syndrome. We will await pituitary hormone workup results. We will also consult ophthalmology with complete and more thorough visual field assessment as well as the neurology service to assist in his neurologic workup. I discussed the findings at length with the patient and his parents and all their questions were answered. MD ESTHER Smith/ /3:15 PM /4:35 PM DAWN
[2016-08-26] MEDS: ONDANSETRON HCL 4 MG/2 ML VIAL IVP PRN (17:30)
[2016-08-26] MEDS ORDERED: IOHEXOL 350 MG/ML 10 ML VIAL (for RAD DIAG) IV ONE (21:17)
[2016-08-26] MEDS: ATORVASTATIN 40 MG TAB PO SCH (21:33)
--- NOTE | 2016-08-26 21:39 | RADRPT ---
EXAM DATE/TIME: 08/26/2016 21:08 [facility] COMPARISON: No previous studies available for comparison. INDICATIONS : History of Smiley's syndrome; evaluate for tumor. IV CONTRAST: 80 cc Omnipaque 350 (iohexol) IV RADIATION DOSE: 5.31 CTDIvol (mGy) MEDICAL HISTORY : Hypertension. Carcinoma, colon. Liver cancer; Smiley's syndrome. SURGICAL HISTORY : Colon resection. Liver resection. ENCOUNTER: Initial ACUITY: 2 days PAIN SCALE: 0/10 LOCATION: chest TECHNIQUE: Volumetric scanning of the chest was performed. Using automated exposure control and adjustment of t he mA and/or kV according to patient size, radiation dose was kept as low as reasonably achievable to obtain optimal diagnostic quality images. FINDINGS: LUNGS: There is no consolidation or pneumothorax. No concerning pulmonary nodule is visualized. PLEURA: There is no pleural thickening or pleural effusion. MEDIASTINUM: The heart and great vessels demonstrate no acute abnormality. There is no mediastinal or hilar lymph adenopathy. AXILLAE: Within normal limits. No lymphadenopathy. SKELETAL: Within normal limits for patient age. MISCELLANEOUS: 2.3 cm right hemidiaphragm defect with focally herniated liver noted. This is probably congenital or developmental. Liver is mildly fatty infiltrated. CONCLUSION: 1. No Pancoast tumor or other acute abnormality. 2. 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 Please see above. 3. Mild fatty infiltration of the liver. Morris Avery MD on August 26, 2016 at 21:34 Board Certified Radiologist. This report was verified electronically.
[2016-08-27] MEDS: LORazepam 2 MG/ML VIAL IV PUSH PRN ×3 (03:16→21:50)
[2016-08-27 05:15] VITALS: BP 126/64; PULSE 70; RESP 18; TEMP 97.6; O2SAT 95
[2016-08-27] MEDS: DEXAMETHASONE 4 MG TAB PO SCH ×4 (05:45→23:32)
[2016-08-27 07:04] LABS: HEMATOCRIT 41.4 % (39.0-51.0); MEAN CELL VOLUME 80.9 FL (80.0-100.0); MEAN CORPUSCULAR HEMOGLOBIN 28.3 PG (27.0-34.0); PLATELET COUNT 248 TH/MM3 (150-450); RED BLOOD COUNT 5.12 MIL/MM3 (4.50-5.90); RED CELL DISTRIBUTION WIDTH 13.8 % (11.6-17.2); REVIEW FLAG FINAL; WHITE BLOOD COUNT 11.2 TH/MM3 (4.0-11.0)
[2016-08-27 08:00] VITALS: BP 120/61; PULSE 83; RESP 18; TEMP 97.4; O2SAT 96
[2016-08-27] MEDS: SODIUM CHLORIDE 0.9% FLUSH 5 ML FLUSH FLUSH SCH ×2 (10:26→21:47)
[2016-08-27] MEDS: PANTOPRAZOLE SOD 40 MG DELAYED RELEASE TAB PO SCH (10:27)
[2016-08-27] MEDS: LISINOPRIL 10 MG TAB PO SCH (10:27)
--- NOTE | 2016-08-27 11:44 | HHI.FPPN ---
Subjective Remarks No acute events overnight. Vital signs unremarkable. Patient otherwise doing well. No worsening of symptoms or change in his vision. Does report episodic episodes of burning/sharp pain on the left sided head that comes and goes very quickly. (Caryn Meyers MD R2) Objective Vitals Vital Signs Date Time Temp Pulse Resp B/P Pulse Ox O2 Delivery O2 Flow Rate FiO2 08/27/16 08:00 97.4 83 18 120/61 96 08/27/16 05:15 97.6 70 18 126/64 95 08/26/16 23:54 97.8 67 20 118/63 95 08/26/16 20:20 97.4 80 16 133/92 96 08/26/16 20:00 85 08/26/16 17:12 77 08/26/16 16:00 97.3 85 18 123/67 98 08/26/16 12:00 97.8 83 18 131/78 96 I/O 08/26/16 08/26/16 08/26/16 08/27/16 08/27/16 08/27/16 07:00 15:00 23:00 07:00 15:00 23:00 Intake Total 480 ml Balance 480 ml Intake Oral 480 ml # Voids 1 2 # Bowel Movements 0 (Caryn Meyers MD R2) Result Diagram: 08/27/16 0550 08/27/16 0550 Objective Remarks GEN: Well-developed, well-nourished patient. No acute distress. Skin: No lesions present on face HEENT: Mildly improved left eye proptosis but with persistent neurosis that is responsive to direct and indirect light. CV: Regular rate and rhythm without obvious murmurs LUNGS: Clear to auscultation bilaterally. Normal respiratory effort. No wheezes , rales, rhonchi. EXT: No edema. No calf tenderness. Normal gait NEURO/PSYCH: Awake, alert. Appropriate insight and judgment. 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 Discharge Planning 1-2 days pending evaluation and clearance from neurology dw Dr. Booth (Caryn Meyers MD R2) Attending Attestation Patient seen and examined. Case reviewed and discussed with the resident team. Agree with plan of care as discussed with me and documented in the resident note. agree with consulting Neurology (Nirmala Booth MD) Problem List: (1) Smiley's syndrome Status: Acute Plan: Presented with the ptosis and miosis on the left side. 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 Symptoms may improve with continued steroid treatment. -Testosterone, growth hormone, ACTH, prolactin pending. All other labs are unremarkable at this time. -CSF unremarkable, Lyme and VDRL pending -Ophthalmology consult will not be available in hospital until 08/30. Attempting to obtain records from outpatient ophthalmology workup. Neurology consulted: Appreciate recommendations * Spinal tap * Decadron 4mg PO q6 Neurology consulted: Appreciate recommendations * Not convinced that current findings are completely related to sella/ suprasellar cystic mass and therefore further workup evaluating for carcinomatosis meningitis involving the pinna nurses indicated * Will await pituitary workup * Consult ophthalmology -Labs to rule out functional vs nonfunctional pituitary mass -ACTH, AM Cortisol, free/total testosterone prolactin, growth hormone pending -TSH, free T4, FSH/LH returned within normal limits Imaging: * Brain MRI: 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 Differential includes craniopharyngioma, Rathke's cleft cyst, adenoma, arachnoid cyst. * Chest CT with contrast: No Pancoast tumor or other acute abnormality. * Soft tissue MRI: Normal * Neck CTA: Normal * Head CT: Normal * CXR: Normal (2) HTN (hypertension) Status: Chronic Plan: -Continue lisinopril 10mg daily (3) HLD (hyperlipidemia) Status: Chronic Plan: -Continue Crestor 20mg daily -Hold CoQ10 -Hold [place] 3 fatty acids (4) Fluids, Electrolytes, Nutrition, Prophylaxis Status: Acute Plan: Fluids: Per PO Electrolytes: monitor and replete, as necessary Nutrition: regular diet DVT prophylaxis: SCDs GI prophylaxis: Protonix (Caryn Meyers MD R2) Caryn Meyers MD R2 Aug 27, 2016 11:44 Nirmala Booth MD Aug 29, 2016 14:08
[2016-08-27 12:00] VITALS: BP 141/69; PULSE 91; RESP 20; TEMP 97.5; O2SAT 94
--- NOTE | 2016-08-27 12:19 | HHI.NSPN ---
(Nicolasa Melara) Note Status Status: Progress Note (Nicolasa Melara) Interval History Interval History This is a 46-year-old gentleman who presents with a three-week history of left-sided periorbital, cheek, forehead and scalp pain, tenderness and dysesthesias. He also relates neck pain associated with this. He initially thought that he had sinusitis and congestion and went to urgent care facility and was placed on antibiotics which did not help and the over the past week or so has also started developing droopiness in the left eye. He was seen recently by his primary care physician and referred to ophthalmology who felt that the patient had Smiley's syndrome and was referred to the emergency room. He denies any right facial or scalp area symptoms and denies any double vision. Denies any vertigo. No incontinence. He does relate a history of stage IV colon cancer with metastasis to the liver and has had a resection as well as subsequent chemotherapy in 2000. He also relates that he has had a more recent scan, although it is not clear whether he has ever had a CT scan of the head or MRI scan, but was informed that there is no indication for any recurrence of this colon cancer. Workup since his presentation last evening included a head CT angiogram and a neck CT angiogram which does not reveal any vascular abnormality. Soft tissue MRI scan of the neck is also negative. 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 There is encroachment upon the optic chiasm but no compression noted. He has also undergone extensive hormonal workup per pituitary protocol. 08/27: no changes in symptoms. eager for his test results (Nicolasa Melara) Labs, Micro, & Vital Signs Results Date Time Temp Pulse Resp B/P Pulse Ox O2 Delivery O2 Flow Rate FiO2 08/27/16 08:00 97.4 83 18 120/61 96 08/27/16 05:15 97.6 70 18 126/64 95 08/26/16 23:54 97.8 67 20 118/63 95 08/26/16 20:20 97.4 80 16 133/92 96 08/26/16 20:00 85 08/26/16 17:12 77 08/26/16 16:00 97.3 85 18 123/67 98 Constitutional Vital Signs Date Time Temp Pulse Resp B/P Pulse Ox O2 Delivery O2 Flow Rate FiO2 08/27/16 08:00 97.4 83 18 120/61 96 08/27/16 05:15 97.6 70 18 126/64 95 08/26/16 23:54 97.8 67 20 118/63 95 08/26/16 20:20 97.4 80 16 133/92 96 08/26/16 20:00 85 08/26/16 17:12 77 08/26/16 16:00 97.3 85 18 123/67 98 (Nicolasa Melara) Review of Systems/Exam Exam Mr. Arellano is alert and oriented to time, place and person. Speech is appropriate. Cranial nerve examination: left pupil 2mm, right 4-5 mm. Left ptosis. Extra- ocular movements are intact. Facial motor are normal and symmetrical. Neck is soft and supple. Muscle strength is 5/5 in all muscle groups of both upper and lower extremities Sensory examination is intact to light touch in both the upper and lower extremities, symmetrically. There is a bilateral plantar flexion response. Cerebellar examination is intact to [id number] test. (Nicolasa Melara) Medications Current Medications Current Medications Medications (Trade) Dose Ordered Sig/Lillian Route PRN Reason Start Time Stop Time Status Last Admin Dose Admin IV Flush (NS Flush) 2 ml UNSCH PRN FLUSH FLUSH AFTER USING IV ACCESS 08/25/16 22:15 IV Flush (NS Flush) 2 ml BID FLUSH 08/26/16 09:00 08/27/16 10:26 Acetaminophen (Tylenol) 650 mg Q4H PRN PO TEMP > 100.4 08/25/16 22:15 Ondansetron HCl (Zofran Inj) 4 mg Q6H PRN IVP NAUSEA OR VOMITING 08/25/16 22:15 08/26/16 17:30 Zolpidem Tartrate (Ambien) 5 mg HS PRN PO INSOMNIA 08/25/16 22:15 Lorazepam (Ativan Inj) 1 mg Q6H PRN IV PUSH anxiety 08/25/16 22:15 08/27/16 03:16 Lisinopril (Prinivil) 10 mg DAILY PO 08/26/16 09:00 08/27/16 10:27 Dexamethasone (Decadron) 4 mg Q6HR PO 08/26/16 12:00 08/27/16 05:45 Pantoprazole Sodium (Protonix) 40 mg DAILY PO 08/27/16 10:00 08/27/16 10:27 Acetaminophen (Tylenol) 650 mg Q6H PRN PO PAIN SCALE 1 TO 2/Headache 08/26/16 10:00 08/26/16 09:40 Acetaminophen/ Hydrocodone Bitart ([place] 5-325 Mg) 1 tab Q4H PRN PO PAIN SCALE 3 TO 5 08/26/16 10:00 08/26/16 12:40 Acetaminophen/ Hydrocodone Bitart ([place] 10-325 Mg) 1 tab Q4H PRN PO PAIN SCALE 6 TO 10 08/26/16 10:00 Naloxone HCl (Narcan Inj) 0.4 mg UNSCH PRN IV SEE LABEL COMMENTS 08/26/16 09:30 Atorvastatin Calcium (Lipitor) 40 mg HS PO 08/26/16 21:00 08/26/16 21:33 (Nicolasa Melara) Medical Decision Making MDM Remarks 46 y/o male with Pituitary mass Smiley's syndrome (Nicolasa Melara) Plan Plan Remarks cont current care neuro following melo in progress, LP, awaiting results, Dr. Eisenberg recommends to obtain CSF cytology dw patient and family in room (Nicolasa Melara) Attending Statement The exam, history, and the medical decision-making described in the above note were completed with the assistance of the mid-level provider. I reviewed and agree with the findings presented. I attest that I had a [id number] encounter with the patient on the same day, and personally performed and documented my assessment and findings in the medical record. (Librado Eisenberg MD) Nicolasa Melara Aug 27, 2016 12:19 Librado Eisenberg MD Aug 27, 2016 19:00
--- NOTE | 2016-08-27 14:40 | HHI.PR ---
Subjective Remarks left ptosis look better today. no headache just some sensitivity over left scalp. small vesicle left top of head no d/c no redness no pain. Objective Vital Signs Date Time Temp Pulse Resp B/P Pulse Ox O2 Delivery O2 Flow Rate FiO2 08/27/16 12:00 97.5 91 20 141/69 94 08/27/16 08:00 97.4 83 18 120/61 96 08/27/16 05:15 97.6 70 18 126/64 95 08/26/16 23:54 97.8 67 20 118/63 95 08/26/16 20:20 97.4 80 16 133/92 96 08/26/16 20:00 85 08/26/16 17:12 77 08/26/16 16:00 97.3 85 18 123/67 98 I/O 08/26/16 08/26/16 08/26/16 08/27/16 08/27/16 08/27/16 07:00 15:00 23:00 07:00 15:00 23:00 Intake Total 480 ml Balance 480 ml Intake Oral 480 ml # Voids 1 2 # Bowel Movements 0 awake alert fluent left pupil 2mm right 4mm reactive b/l left ptosis no sign of anhydrosis face symmetrical motor intact dtrs 2+ neck c spine tenderness to palpation gait normal Result Diagram: 08/27/16 0550 08/27/[address] chest no Pancoast tumor labs LP reviewed still pending lyme,vdrl,cytology and afb. hormone levels pending. 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 cervical pain -c spine mri -MG labs -cytology and some other lp results as well as hormone levels pending -doing well on steroids -can be d/c'd tomorrow if stable and can f/u with me in the office next week for results etc.I'd d/c on steroid taper. Mary Beck MD Aug 27, 2016 14:40
--- NOTE | 2016-08-27 15:33 | RADRPT ---
EXAM DATE/TIME: 08/27/2016 15:03 [facility] COMPARISON: No previous studies available for comparison. INDICATIONS : Neck pain. MEDICAL HISTORY : Carcinoma, colon. Metastatic, liver. Hypertension. SURGICAL HISTORY : Colon resection. Cholecystectomy. ENCOUNTER: Initial ACUITY: 1 day PAIN SCORE: 4/10 LOCATION: neck TECHNIQUE: Multiplanar, multisequence MRI examination of the cervical spine was performed. FINDINGS: VERTEBRAE: Normal vertebral body height. Homogeneous marrow signal. ALIGNMENT: No evidence of subluxation. CORD: Normal configuration and signal. POST FOSSA: The cerebellar tonsils are normal in position. C2-C3: The thecal sac has a normal configuration. There is no evidence of disc herniation or spinal canal s tenosis. The neural foramina are patent bilaterally. C3-C4: The thecal sac has a normal configuration. There is no evidence of disc herniation or spinal canal s tenosis. The neural foramina are patent bilaterally. C4-C5: The thecal sac has a normal configuration. There is no evidence of disc herniation or spinal canal s tenosis. The neural foramina are patent bilaterally. Minimal uncovertebral spurring. C5-C6: Minimal broad-based disc bulge abuts the ventral thecal sac. Minimal uncovertebral spurring. The neur al foramina are patent bilaterally. C6-C7: The thecal sac has a normal configuration. There is no evidence of disc herniation or spinal canal s tenosis. The neural foramina are patent bilaterally. C7-T1: The thecal sac has a normal configuration. There is no evidence of disc herniation or spinal canal s tenosis. The neural foramina are patent bilaterally. CONCLUSION: 1. Minimal broad-based disc bulge at C5-6. No canal stenosis. 2. Minimal degenerative changes at C4-5 and C5-6 levels. 3. No disc herniation or canal stenosis. Tavo Cosme MD on August 27, 2016 at 15:30 Board Certified Radiologist. This report was verified electronically.
[2016-08-27] MEDS: ONDANSETRON HCL 4 MG/2 ML VIAL IVP PRN (15:46)
[2016-08-27 16:00] VITALS: BP 134/71; PULSE 84; RESP 20; TEMP 97.5; O2SAT 96
[2016-08-27 20:00] VITALS: BP 118/63; PULSE 67; RESP 16; TEMP 97.5; O2SAT 95
[2016-08-27] MEDS: ATORVASTATIN 40 MG TAB PO SCH (21:46)
[2016-08-28] VITALS: BP 111/51; PULSE 67; RESP 16; TEMP 98.2; O2SAT 95
[2016-08-28 04:00] VITALS: BP 125/67; PULSE 59; RESP 18; TEMP 97.5; O2SAT 98
[2016-08-28] MEDS: DEXAMETHASONE 4 MG TAB PO SCH ×2 (06:28→11:33)
[2016-08-28 08:00] VITALS: BP 129/69; PULSE 64; RESP 16; TEMP 97.3; O2SAT 98
[2016-08-28] MEDS: LISINOPRIL 10 MG TAB PO SCH (09:16)
[2016-08-28] MEDS: PANTOPRAZOLE SOD 40 MG DELAYED RELEASE TAB PO SCH (09:16)
[2016-08-28] MEDS: SODIUM CHLORIDE 0.9% FLUSH 5 ML FLUSH FLUSH SCH (09:22)
--- NOTE | 2016-08-28 10:02 | HHI.DCPOC ---
Discharge Care Plan Diagnosis: (1) Smiley's syndrome Goals to Promote Your Health * To prevent worsening of your condition and complications * To maintain your health at the optimal level Directions to Meet Your Goals Take your medications as prescribed Follow your dietary instruction Follow activity as directed Keep your appointments as scheduled Take your immunizations and boosters as scheduled If your symptoms worsen call your PCP, if no PCP go to Urgent Care Center or Emergency Room Smoking is Dangerous to Your Health. Avoid second hand smoke Call the 24-hour hour crisis hotline for domestic abuse at Giovanni Laboy MD R1 Aug 28, 2016 10:02
[2016-08-28] MEDS ORDERED: PRED10 PO (10:45)
[2016-08-28] MEDS ORDERED: LORA-392 PO (10:45)
--- NOTE | 2016-08-28 11:02 | HHI.FPPN ---
Subjective Remarks Patient seen and examined by medical team this morning. No acute events overnight with stable vital signs. He has no current complaints and denies any fevers, chills, shortness of breath, chest pain, NVD, or calf tenderness. Patient anxious about medical diagnosis and current management. Assist possible etiologies and treatment management thoroughly. He continues to have intermittent pain about the left side of his face, but does agree his condition has improved. Medical team explained that he can follow up with his specialists as an outpatient and continue his prednisone. After all questions were answered , he is agreeable to be discharged and follow-up as an outpatient. (Giovanni Laboy MD R1) Objective Vitals Vital Signs Date Time Temp Pulse Resp B/P Pulse Ox O2 Delivery O2 Flow Rate FiO2 08/28/16 10:57 Room Air 08/28/16 08:00 97.3 64 16 129/69 98 08/28/16 04:00 97.5 59 18 125/67 98 08/28/16 00:00 98.2 67 16 111/51 95 08/28/16 00:00 Room Air 08/27/16 20:00 Room Air 08/27/16 20:00 97.5 67 16 118/63 95 08/27/16 16:00 97.5 84 20 134/71 96 08/27/16 12:00 97.5 91 20 141/69 94 I/O 08/27/16 08/27/16 08/27/16 08/28/16 08/28/16 08/28/16 07:00 15:00 23:00 07:00 15:00 23:00 Intake Total 600 ml 120 ml Balance 600 ml 120 ml Intake Oral 600 ml 120 ml # Voids 2 3 2 # Bowel Movements 0 (Giovanni Laboy MD R1) Result Diagram: 08/27/16 0550 08/27/16 0550 Objective Remarks GEN: Well-developed, well-nourished patient. No acute distress. Skin: No lesions present on face, small vesicle on L side of scalp. HEENT: Mildly improved left eye proptosis. Left pupil 2mm, right 4mm; both appropriately respond to light. No LAD. Very mild L facial droop. Motor intact. CV: Regular rate and rhythm without obvious murmurs LUNGS: Clear to auscultation bilaterally. Normal respiratory effort. No wheezes , rales, rhonchi. EXT: No edema. No calf tenderness. Normal gait NEURO/PSYCH: Awake, alert. Appropriate insight and judgment. 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 Discharge Planning Today. Patient to follow up with Neurology and Neurosurgery as an outpatient within 1 week. jean carlos Booth (Giovanni Laboy MD R1) Attending Attestation Patient seen and examined. Case reviewed and discussed with the resident team. Agree with plan of care as discussed with me and documented in the resident note. appreciate Neurology. he will follow up with Dr Beck. He could have this as a sequela of shingles (Nirmala Booth MD) Problem List: (1) Smiley's syndrome Status: Acute Plan: Presented with the ptosis and miosis on the left side. 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 Symptoms may improve with continued steroid treatment. -Testosterone, growth hormone, ACTH, prolactin pending. All other labs are unremarkable at this time. -CSF unremarkable, Lyme and VDRL pending -Ophthalmology consult will not be available in hospital until 08/30. Attempting to obtain records from outpatient ophthalmology workup. -Patient to be discharged home with Prednisone taper and Neurosurgery and Neurology Neurology consulted: Appreciate recommendations * Spinal tap unremarkable with mildly elevated protein, cytology pending * Decadron 4mg PO q6, transitioned to PO Prednisone taper 60mg to 10mg over 8 days as prescribed * Patient to follow up with Dr. Beck within one week Neurology consulted: Appreciate recommendations * Not convinced that current findings are completely related to sella/ suprasellar cystic mass and therefore further workup evaluating for carcinomatosis meningitis involving the pinna nurses indicated * Will await pituitary workup * Consult ophthalmology * Patient to follow up with Neurosurgery as an outpatient -Labs to rule out functional vs nonfunctional pituitary mass -ACTH, AM Cortisol, free/total testosterone prolactin, growth hormone, striated muscle AB, and ACH receptor AB pending -TSH, free T4, FSH/LH returned within normal limits Imaging: * Brain MRI: 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 Differential includes craniopharyngioma, Rathke's cleft cyst, adenoma, arachnoid cyst. * Chest CT with contrast: No Pancoast tumor or other acute abnormality. * Soft tissue MRI: Normal * Neck CTA: Normal * Head CT: Normal * CXR: Normal (2) HTN (hypertension) Status: Chronic Plan: Patient with chronic hypertension. -Continue lisinopril 10mg daily (3) HLD (hyperlipidemia) Status: Chronic Plan: -Continue Crestor 20mg daily -Hold CoQ10 -Hold [place] 3 fatty acids (4) Fluids, Electrolytes, Nutrition, Prophylaxis Status: Acute Plan: Fluids: Per PO Electrolytes: monitor and replete, as necessary Nutrition: regular diet DVT prophylaxis: SCDs GI prophylaxis: Protonix (Giovanni Laboy MD R1) Giovanni Laboy MD R1 Aug 28, 2016 11:02 Nirmala Booth MD Aug 29, 2016 14:11
[2016-08-28 12:00] VITALS: BP 128/65; PULSE 79; RESP 14; TEMP 98.2; O2SAT 97
[2016-08-28] MEDS: ACETAMINOPHEN 325 MG TAB PO PRN (12:28)
[2016-08-29 17:56] LABS: LYME IGG IMMUNOBLOT CSF None Detected bands (None Detected); LYME IGM IMMUNOBLOT CSF None Detected bands (None Detected)
[2016-08-29 22:07] LABS: GROWTH HORMONE 0.2 ng/mL (0.01 - 0.97)
[2016-08-31 19:53] LABS: VDRL CSF NON-REACTIVE (())
[2016-08-31 23:53] LABS: ACETYLCHOLINE REC BINDING LESS THAN 0.30 nmol/L (())
[2016-09-01 12:09] LABS: STRIATED MUCLE AB TITER ND (<1:40)
--- NOTE | 2016-09-23 13:56 | HHI.DS ---
Discharge Summary Admission Date Aug 25, 2016 at 21:24 Discharge Date: Aug 29, 2016 Admitting Diagnosis (1) Smiley's syndrome Diagnosis: Principal Plan: Presented with the ptosis and miosis on the left side. 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 Symptoms may improve with continued steroid treatment. -Testosterone, growth hormone, ACTH, prolactin pending. All other labs are unremarkable at this time. -CSF unremarkable, Lyme and VDRL pending -Ophthalmology consult will not be available in hospital until 08/30. Attempting to obtain records from outpatient ophthalmology workup. -Patient to be discharged home with Prednisone taper and Neurosurgery and Neurology Neurology consulted: Appreciate recommendations * Spinal tap unremarkable with mildly elevated protein, cytology pending * Decadron 4mg PO q6, transitioned to PO Prednisone taper 60mg to 10mg over 8 days as prescribed * Patient to follow up with Dr. Beck within one week Neurology consulted: Appreciate recommendations * Not convinced that current findings are completely related to sella/ suprasellar cystic mass and therefore further workup evaluating for carcinomatosis meningitis involving the pinna nurses indicated * Will await pituitary workup * Consult ophthalmology * Patient to follow up with Neurosurgery as an outpatient -Labs to rule out functional vs nonfunctional pituitary mass -ACTH, AM Cortisol, free/total testosterone prolactin, growth hormone, striated muscle AB, and ACH receptor AB pending -TSH, free T4, FSH/LH returned within normal limits Imaging: * Brain MRI: 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 Differential includes craniopharyngioma, Rathke's cleft cyst, adenoma, arachnoid cyst. * Chest CT with contrast: No Pancoast tumor or other acute abnormality. * Soft tissue MRI: Normal * Neck CTA: Normal * Head CT: Normal * CXR: Normal (2) HTN (hypertension) Diagnosis: Secondary Plan: Patient with chronic hypertension. -Continue lisinopril 10mg daily (3) HLD (hyperlipidemia) Diagnosis: Secondary Plan: -Continue Crestor 20mg daily -Hold CoQ10 -Hold [place] 3 fatty acids (4) Fluids, Electrolytes, Nutrition, Prophylaxis Diagnosis: Secondary Plan: Fluids: Per PO Electrolytes: monitor and replete, as necessary Nutrition: regular diet DVT prophylaxis: SCDs GI prophylaxis: Protonix Brief History 46 year-old male HTN, HLD, and chronic nasal congestion presents to ED with facial neuropathy x3 weeks and pituitary cyst, as well as L-eye ptosis, miosis, and concern for Smiley's syndrome. Symptoms began three weeks ago (Aug 06) as a "nerve attack" around L eye. Attack lasted ~90 sec, radiated to L- scalp, and was accompanied by L eye twitching, pressure around eye, and tenderness to L scalp and base of skull. Went to urgent care, diagnosed with sinus infection, and treated with Amoxicillin x5 days with no improvement. Facial neuropathy and scalp tenderness have continued, along with intermittent L -sided headaches. 1 week ago, noticed his L eye drooping with constricted L pupil and dilated R pupil. Denies anhydrosis. Experiencing blurry vision in RIGHT eye. Went to PCP today who had stat referral to ophthalmology and ordered outpatient CT scan. Homemaker Companion diagnosed Smiley's syndrome and referred him to ED for further workup. CT scan was suggestive of pituitary mass. Pt denies loss of visual osborn, double vision, acute impotence, or weight loss/ weight gain. Denies fevers, confusion, night sweats, or change in appetite. PE at Discharge GEN: Well-developed, well-nourished patient. No acute distress. Skin: No lesions present on face, small vesicle on L side of scalp. HEENT: Mildly improved left eye proptosis. Left pupil 2mm, right 4mm; both appropriately respond to light. No LAD. Very mild L facial droop. Motor intact. CV: Regular rate and rhythm without obvious murmurs LUNGS: Clear to auscultation bilaterally. Normal respiratory effort. No wheezes , rales, rhonchi. EXT: No edema. No calf tenderness. Normal gait NEURO/PSYCH: Awake, alert. Appropriate insight and judgment. Normal speech Hospital Course Patient admitted for the suspected Smiley's syndrome with ptosis and miosis of the L side. Brain MRI showed 1.6cm 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 Chest CT showed no Pancoast tumor or other abnormality. Neck soft tissue MRI, Neck CTA, Head CT, and CXR all were WNL. Neurology was consulted and initiated pituitary work up with spinal tap, ACTH, Cortisol, testosterone, prolactin, GH, striated muscle AB, TSH, free T4, FSH, LH, Lyme titers, and VDRL. At the time of discharge all labs were negative with testosterone, GH, ACTH, Lyme titers, VDRL, and prolactin pending. Ophtalmology was consulted, however was unavailable for inpatient evaluation. Neurosurgery was consulted for possible excision, but deferred to pituitary work up at this time and would like the patient to follow up as an outpatient. The patient was started on Decadron and then transitioned to a Prednisone taper per Neurology. The patient's status improved daily with decreasing pain. He was discharged home on 08/29/16 with instructions to follow up with his PCP, Neurology, Neurosurgery, and Ophthalmology as an outpatient. He was discharged home on the Prednisone taper to assist with inflammation as well as Ativan for his anxiety. Pt Condition on Discharge: Stable Discharge Disposition: Discharge Home Discharge Instructions DIET: Follow Instructions for: As Tolerated, No Restrictions Activities you can perform: See Additionl Instruction Other Activity Instructions: Patient instructed not to drive or work until cleared by neurology/ophthalmology Follow up Referrals: Appointment for Follow Up - 1 Week Neurology - 1 Week with Mary Beck MD Neurosurgery - 1 Week New Medications: Lorazepam (Ativan) 0.5 Mg Tab 0.5 MG PO Q6H PRN ANXIETY AND/OR AGITATION #20 Ref 0 TAB Prednisone (Prednisone) 10 Mg Tab 10 MG PO DAILY Take 60mg for the first two days (6 tablets per day), Take 40mg for the next two days (4 tablets per day), Take 20mg for the next two days (2 tablets per day), Take 10mg for the last two days (1 taletper day) Total of 8 days of Prednisone taper #26 Ref 0 TAB Continued Medications: Aspirin (Aspirin) 81 Mg Tabdr 81 MG PO DAILY TAB Coenzyme Q10 (Ubidecarenone) (Co Q-10) 200 Mg Cap 200 MG PO DAILY Diclofenac (Zorvolex) 35 Mg Cap 75 MG PO DAILY Pain Management Ref 0 CAP Lisinopril (Lisinopril) 10 Mg Tab 10 MG PO DAILY #30 Ref 0 TAB [place]-3 Fatty Acids (Fish Oil) 1,200 Mg Cap 1200 MG PO DAILY Rosuvastatin (Crestor) 20 Mg Tab 20 MG PO DAILY Cholesterol Management #30 Ref 0 TAB Giovanni Laboy MD R1 Sep 23, 2016 13:56
== END 2016-08-28 14:07 | disposition home or self-care (01) | DRG 74 ==
LOC: NEPE 17:52 → NEDA 21:24 → N04B 22:50
PROVIDERS: ADMIT Family Medicine; ATTEND Family Medicine
PROC: 009U3ZX Drainage of Spinal Canal, Percutaneous Approach, Diagnostic (ICD-10-PCS; principal; 2016-08-26)
DX: G90.2 Horner's syndrome (principal); E23.6 Other disorders of pituitary gland; G62.9 Polyneuropathy, unspecified; E78.5 Hyperlipidemia, unspecified; H57.03 Miosis; F41.9 Anxiety disorder, unspecified; H57.04 Mydriasis; Z85.038 Personal history of other malignant neoplasm of large intestine; H02.402 Unspecified ptosis of left eyelid; I10 Essential (primary) hypertension; R09.81 Nasal congestion; Z92.21 Personal history of antineoplastic chemotherapy; M54.5 Low back pain; G89.29 Other chronic pain; Z90.49 Acquired absence of other specified parts of digestive tract; Z87.891 Personal history of nicotine dependence; Z82.49 Family history of ischemic heart disease and other diseases of the circulatory system; Z80.0 Family history of malignant neoplasm of digestive organs
CPT/HCPCS: 62270; 70496; 70498; 70543; 70553; 71020; 71260; 72141; 77003; 80048; 80053; 82024; 82533; 82945; 83001; 83002; 83003; 83519; 84146; 84157; 84402; 84403; 84439; 84443; 85025; 85027; 85610; 85730; 86255; 86592; 86618; 87015; 87070; 87116; 87205; 87206; 89051; A9579; J2060; J2405; J8540; Q9967